=== PATIENT | male | born 1970 | race Caucasian/White ===

== ENCOUNTER 2024-01-09 21:58 | Emergency (ER) | payer OTHER, SELFPAY ==
--- NOTE | ~2024-01-09 | XR_ITS ---
EXAMINATION: XR KNEE, RIGHT CLINICAL INFORMATION: pain/swelling COMPARISON: None available. TECHNIQUE: AP and lateral views of the right knee. FINDINGS: No evidence of acute fracture. Alignment is anatomic. No significant effusion or focal soft tissue swelling. Fabella noted. Moderate patellofemoral arthrosis with joint space narrowing and osteophytosis. No radiopaque foreign body. XR/XR knee RT 2V IMPRESSION: 1. No evidence of acute fracture or dislocation. 2. Moderate patellofemoral arthrosis.
[2024-01-09 22:14] VITALS: BP 121/75; PULSE 74; RESP 16; TEMP 36.9; O2SAT 98; BMI 31.2
--- NOTE | 2024-01-09 22:57 | PC.NURSE ---
Wound noted to patient's right knee, looks like the wound opened slightly and some purulent drainage was present. Patient unsure how he injured his knee, either from working on his car or walking on his knees in the pond; tetanus up to date.
[2024-01-09 23:11] VITALS: BP 121/76; PULSE 78; RESP 16; TEMP 36.8; O2SAT 98
--- NOTE | 2024-01-09 23:15 | ED_ITS ---
HPI - General Adult General Chief complaint: Skin/Abscess/Foreign Body Stated complaint: R knee infection Time Seen by Provider: 01/09/24 22:43 History of Present Illness ED Provider: Sofi SAAVEDRA narrative: The patient is an ordinarily healthy 53-year-old male comes to the emergency room for evaluation of an infection of the skin of the right knee. Patient says that he has been having a problem for about 3 days. He thought he had an infection from possibly sustaining a mild knee injury when on his knees in a [place] or possibly from doing some work while he was on his knees in his garage. He says purulent material. He is able to move the knee well. He has not had a fever. No sweats or chills. The patient denies any significant past medical history such as hypertension or diabetes. He denies any increased thirst or increased urination recently. The patient is a smoker. The patient recently moved to this area from [place], [place]. He has a obtained [place] insurance but he does not yet have a primary care doctor. Related Data Previous Rx's ?Medication ?Instructions ?Recorded cefuroxime axetil 500 mg tablet 500 mg PO Q12H #20 tabs 01/09/24 sulfamethoxazole 800 1 tab PO Q12H 10 days #20 tabs 01/09/24 mg-trimethoprim 160 mg tablet Allergies Allergy/AdvReac Type Severity Reaction Status Date / Time No Known Allergies Allergy Verified 01/09/24 22:16 Review of Systems 2 Review of Systems: Yes all other systems are reviewed and are negative PMFSH Social History Social History Alcohol intake: never Smoked in Last 30 Days: No Use of substances other than those prescribed or required for medical reasons: No Advance Directives: No Advance Directives Information Provided: No Physical Exam ED Vital Signs: Vital Signs - 24 hr 01/09/24 22:14 01/09/24 23:11 01/10/24 00:08 Temperature 98.4 F 98.2 F 98.2 F Pulse Rate 74 78 76 Respiratory Rate 16 16 18 Blood Pressure 121/75 121/76 119/72 Pulse Oximetry 98 98 97 Oxygen Delivery Method Room Air Room Air Room Air BMI result Body Mass Index 31.2 Const Other: The patient is awake, alert, pleasant, cooperative. He has a healthy and robust looking 53-year-old. He does not appear acutely ill. HENMT Other: Head and face are unremarkable. Mucous membranes moist. Eyes Other: Pupils are round equal, conjunctivae clear Neck Other: Moving his neck easily Resp Effort & Inspection: normal respiratory effort Auscultation: clear to auscultation bilaterally Cardio Rate: regular rate Rhythm: regular rhythm Heart sounds: S1 normal heart sound present and S2 normal heart sound present Skin Other: The patient has draining wound below the right patella with some associated erythema. Neuro Other: The patient is awake, alert, nontoxic, neurologically intact. Extrem Other: The patient has an excellent range of motion of the knee. He can flex the knee entirely. He does not seem to have any discomfort with manipulation of the knee joint. There is no effusion. Medications Administered Discontinued Medications Generic Name Dose Route Start Last Admin Trade Name Pauline PRN Reason Stop Dose Admin Bacitracin 1 appl 01/09/24 23:20 01/09/24 23:32 Bacitracin Oint 0.9 Gm Packet TOPICAL 01/09/24 23:21 1 appl ONCE ONE Administration Protocol Cefuroxime Axetil 500 mg 01/09/24 23:04 01/09/24 23:32 Cefuroxime Axetil 500 Mg Tablet PO 01/09/24 23:05 500 mg ONCE ONE Administration Trimethoprim/Sulfamethoxazole 1 tab 01/09/24 23:04 01/09/24 23:32 Sulfamethox/Trimeth 800/160 Tablet PO 01/09/24 23:05 1 tab ONCE ONE Administration Medical Decision Making Medical Decision Making [facility] Narrative: The patient is a 53-year-old male who seems to have a purulent soft tissue skin infection to the skin of the right knee just below the patella. There is some mild associated cellulitis. Swabbed and sent for culture. The patient will be started on trimethoprim/sulfamethoxazole and cefuroxime. The patient otherwise looks well and nontoxic. There is no suggestion of a joint infection. The patient does not have a PCP. He is given the contact information for the [facility]. He should return if worse. Discharge Plan Discharge Clinical Impression: Cellulitis of right knee Patient Disposition: Home, Self-Care Additional Instructions: You seemed to have a soft tissue skin infection near the knee. The x-ray shows no foreign matter in the wound. Keep the wound clean and covered with a Band-Aid. The wound make it wet in the shower. Keep the wound clean. You may use bacitracin to the wound until it seems to stop draining. Take the antibiotics prescribed 2 times a day. Please finish the full course of the antibiotics. Avoid swimming until you are completely healed. Please work on getting a primary care doctor. You may try the [facility] as a possible clinic for a primary care doctor. Return to the emergency room if you feel things are getting significantly worse with the knee. Prescriptions: New sulfamethoxazole-trimethoprim 800-160 mg tablet 1 tab PO Q12H 10 Days Qty: 20 0RF cefuroxime axetil 500 mg tablet 500 mg PO Q12H Qty: 20 0RF Referrals: [facility] [Provider Group] (New primary care doctor, right knee skin infection) Interventions: ED Discharge Assessment Last Done: 01/10/24 00:08 Discharge Date/Time: 01/09/24 23:45 Print Language: Sammarinese
[2024-01-09] MEDS: Bacitracin Oint 0.9 GM PACKET 1 APPL TOPICAL (23:32)
[2024-01-09] MEDS: cefuroxime axetiL 500 MG TABLET PO (23:32)
[2024-01-09] MEDS: Sulfamethox/Trimeth 800/160 TABLET 1 TAB PO (23:32)
[2024-01-10 00:08] VITALS: BP 119/72; PULSE 76; RESP 18; TEMP 36.8; O2SAT 97
== END 2024-01-09 23:45 | disposition home or self-care (01) ==
PROVIDERS: Emergency Provider Emergency Medicine
DX: L03.115 Cellulitis of right lower limb (principal); M25.561 Pain in right knee; Z79.899 Other long term (current) drug therapy
CPT/HCPCS: 73560; 87070; 87077; 87186; 87205; 99283; 99284